=== PATIENT | male | born 1980 | race Hispanic/Latino ===

== ENCOUNTER 2020-09-15 09:02 | Emergency (ER) | payer SELFPAY ==
[2020-09-15 09:35] LABS: Basophils % (Auto) 0.3 % (0.0-1.8); Hematocrit 42.7 % (35.5-45.6); Hemoglobin 15.1 gm/dl (11.8-15.2); Lymphocytes # (Auto) 0.7 K/mm3 (1.2-5.4); Lymphocytes % (Auto) 5.7 % (13.4-35.0); Mean Corpuscular HGB Conc 35 % (32-34); Mean Corpuscular Volume 98 fl (84-94); Monocytes # (Auto) 1.5 K/mm3 (0.0-0.8); Monocytes % (Auto) 11.4 % (0.0-7.3); Platelet Count 123 K/mm3 (140-440); Red Blood Count 4.34 M/mm3 (3.65-5.03); Red Cell Distribution Width 13.8 % (13.2-15.2)
[2020-09-15 09:40] LABS: Amphetamine Screen,Urine PRESUMPTIVE POSITIVE; Benzodiazepines Screen,Urine PRESUMPTIVE NEGATIVE; Cannabinoid Screen,Urine PRESUMPTIVE NEGATIVE; Cocaine Screen,Urine PRESUMPTIVE NEGATIVE; Methadone Screen,Urine PRESUMPTIVE NEGATIVE; Opiate Screen,Urine PRESUMPTIVE NEGATIVE
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
[2020-09-15 09:53] LABS: Calcium 9.8 mg/dL (8.4-10.2)
--- NOTE | 2020-09-15 11:15 | Cat Scan Report ---
CT BRAIN: 09/15/2020 INDICATION / CLINICAL INFORMATION: head injury. COMPARISON: None available. FINDINGS: BRAIN/INTRACRANIAL STRUCTURES: Unenhanced CT images of the brain demonstrate no evidence of acute int racranial abnormality. Ventricles and sulci are at the upper limits of normal in size and shape for a patient of this age. There is no evidence of acute ischemic injury, hemorrhage, or mass. There are no abnormal extra-axial fluid collections. EXTRACRANIAL STRUCTURES: Unremarkable. IMPRESSION: No acute abnormality. All CT scans at this location are performed using dose reduction to ALARA by means of automated expos ure control. Signer Name: Nirmal Sargent MD Signed: 09/15/2020 10:53 AM Workstation Name: [id number]
[2020-09-15 12:24] LABS: Bacteria,Urine 2+ /HPF (Negative); Bilirubin,Urine MOD (Negative); Blood,Urine LG (Negative); Color,Urine Amber (Yellow); Hyaline Casts,Urine 87 /LPF; Mucus,Urine 3+ /HPF
[2020-09-15 12:26] LABS: Protein,Urine >500 mg/dL (Negative)
[2020-09-15 12:38] LABS: Ictotest,Urine Negative (Negative)
[2020-09-15] MEDS ORDERED: ZIPRASIDONE MESYLATE 20 MG VIAL IM ONE ×2 (13:39→13:48)
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
[2020-09-15] MEDS ORDERED: levoFLOXacin 500 MG TAB PO SCH (14:00)
[2020-09-15 20:04] VITALS: BP 120/79
--- NOTE | 2020-09-15 20:22 | Event Note ---
I evaluated patient. Mental health analyst competitive intelligence states that patient can be discharged once medically clear. At this time he does not meet criteria for inpatient treatment. He currently denies suicidal ideation. He denies auditory hallucinations. Patient's mother is here from [place]. She will take patient home to stay with her and her . Upon my exam, patient is appropriate for discharge home.
== END 2020-09-15 21:33 | disposition home or self-care (01) ==
LOC: ED 09:02
DX: S09.90XA Unspecified injury of head, initial encounter (principal); F23 Brief psychotic disorder; F32.9 Major depressive disorder, single episode, unspecified; F17.200 Nicotine dependence, unspecified, uncomplicated; Z72.89 Other problems related to lifestyle; Z98.890 Other specified postprocedural states; X58.XXXA Exposure to other specified factors, initial encounter; Y93.89 Activity, other specified; Y92.89 Other specified places as the place of occurrence of the external cause; Y99.8 Other external cause status
CPT/HCPCS: 36415; 70450; 80048; 80307; 81001; 85025; 87086; 96372; 99285; J3486; 80320; G0480